=== PATIENT | male | born 1960 | race Caucasian/White ===

== ENCOUNTER 2019-03-16 11:18 | Emergency (ER) | payer MEDICARE, OTHER ==
[~2019-03-16] VITALS: Ht 172.7 cm; Wt 74.8 kg
[2019-03-16] MEDS ORDERED: ONDANSETRON 4 MG/2 ML VIAL ONE ×2 (11:26→14:02)
[2019-03-16] MEDS ORDERED: MORPHINE SULFATE 4 MG/1 ML DISP.SYRIN ONE ×2 (11:26→12:21)
[2019-03-16] MEDS ORDERED: IV NORMAL SALINE 250 ML IV ONE (11:28)
[2019-03-16] MEDS ORDERED: IOHEXOL 300MG/ML 100 ML INFUS..BTL ONE (11:28)
[2019-03-16] MEDS ORDERED: SWABABLE VALVE TRANSFER SET EA MC ONE (11:28)
--- NOTE | 2019-03-16 11:30 | NUR ---
pt ambulated in steady gait. A&O x4. c/o RLQ ABD pain. 8/10 on pain scale. sudden onset occuring 25 minutes ago. pt noted guarding site. pain does not radiate per pt. Breathing even and unlabored. no SOB noted. denies any cardiovascular distress. pulses palpable. speech clear and able to make needs known / follow commands. denies any distress. fall precautions implemented per protocol. bed low, s/r up x2, call light within reach
--- NOTE | 2019-03-16 11:32 | NUR ---
ERMD at bedside for MSE
[2019-03-16] MEDS: MORPHINE SULFATE 2 MG/1 ML DISP.SYRIN IV ONE (11:38)
[2019-03-16] MEDS: ONDANSETRON 4 MG/2 ML VIAL IV ONE ×2 (11:39→14:10)
[2019-03-16 11:40] LABS: BASOPHILS # (AUTO) 0.1 K/uL (0.0-8.0); BASOPHILS % (AUTO) 0.8 % (0.0-2.0); EOSINOPHILS # (AUTO) 0.1 K/uL (0.0-0.7); EOSINOPHILS % (AUTO) 1.8 % (0.0-7.0); HEMATOCRIT 47.4 % (36.7-47.1); HEMOGLOBIN 15.5 g/dL (12.5-16.3); LYMPHOCYTES % (AUTO) 29.7 % (20.5-51.5); MEAN CORPUSCULAR HEMOGLOBIN 27.8 uug (23.8-33.4); MEAN CORPUSCULAR HGB CONC 33 g/dL (32.5-36.3); MEAN CORPUSCULAR VOLUME 85.3 fL (73.0-96.2); MONOCYTES # (AUTO) 0.5 K/uL (2.0-10.0); MONOCYTES % (AUTO) 7.4 % (0.0-11.0); NEUTROPHILS % (AUTO) 60.3 % (38.5-71.5); PLATELET COUNT (AUTO) 181 K/uL (152-348); RED BLOOD CELL COUNT(AUTO) 5.56 MIL/uL (4.06-5.63); WHITE BLOOD COUNT (AUTO) 6.7 K/uL (3.6-10.2)
[2019-03-16 11:46] LABS: CREATININE 1.5 mg/dL (0.6-1.3)
[2019-03-16 11:52] LABS: BILIRUBIN,DIRECT 0.1 mg/dL (0.0-0.2); BILIRUBIN,TOTAL 0.6 mg/dL (0.2-1.0); TOTAL PROTEIN, SERUM 7.2 g/dL (6.4-8.2)
--- NOTE | 2019-03-16 11:54 | NUR ---
Patient taken to Radiology dept for CT scan
--- NOTE | 2019-03-16 12:12 | NUR ---
Patient back from CT scan
[2019-03-16] MEDS: IV NORMAL SALINE 1000 ML BAG IV ONE ×2 (12:14→14:11)
[2019-03-16] MEDS: MORPHINE SULFATE 4 MG/1 ML DISP.SYRIN IV ONE (12:25)
[2019-03-16] MEDS ORDERED: KETOROLAC TROMETHAMINE 15 MG INJ ONE (12:31)
[2019-03-16] MEDS: KETOROLAC TROMETHAMINE 15 MG INJ IVP ONE (12:36)
[2019-03-16 13:40] LABS: *BILIRUBIN,URIN NEGATIVE (NEGATIVE); *BLOOD, URINE 2+ (NEGATIVE); *CLARITY,URINE CLEAR (CLEAR); *COLOR,URINE YELLOW (YELLOW); *KETONES,URINE NEGATIVE (NEGATIVE); *UROBILINOGEN,URINE 0.2 E.U./dl (NORMAL); LEUKOCYTE ESTERASE ,URINE NEGATIVE (NEGATIVE); NITRITE, URINE NEGATIVE (NEGATIVE); PH,URINE 7.5 (5.0-8.0); UGLUCOSE NEGATIVE (NEGATIVE)
[2019-03-16 13:46] LABS: BACTERIA,URINE FEW /HPF (NONE SEEN); SQUAMOUS EPITHELIAL CELL,UR FEW /HPF (NONE SEEN); WBC,URINE 0-3 /HPF (0-3)
--- NOTE | 2019-03-16 15:47 | NUR ---
IV removed. Catheter intact and site benign. Pressure and 4x4 gauze applied to site. No bleeding noted. Patient discharged to home in stable conditon. Written and verbal after care instructions given to patient. Patient verbalizes understanding of instructions. Copies of all tests results were given to patient per patient's request.
== END 2019-03-16 15:53 | disposition home or self-care (01) ==
LOC: ER 11:18
DX: N20.1 Calculus of ureter (principal); N28.9 Disorder of kidney and ureter, unspecified; F32.9 Major depressive disorder, single episode, unspecified; E78.5 Hyperlipidemia, unspecified; Z88.2 Allergy status to sulfonamides; Z88.8 Allergy status to other drugs, medicaments and biological substances
CPT/HCPCS: 36415; 74177; 80048; 80076; 81000; 81001; 83605 ×2; 83690; 85025; 87040 ×2; 93005; 96361; 96374; 96375; 96376; 99284; J1885; J2270 ×2; J2405 ×2; Q9967; A4663; J7030; J7040; J7050